=== PATIENT | male | born 1995 | race Caucasian/White ===

== ENCOUNTER → 2020-09-10 10:36 | Outpatient (CLI) | payer OTHER, SELFPAY ==
--- NOTE | ~2020-09-10 | MR_ITS ---
EXAMINATION: MR shoulder LT wo con DATE: 09/10/2020 11:10 INDICATION: Torn labrum at the left shoulder post injury a few years prior presenting with worsening left shoulder pain, popping and limited range of motion TECHNIQUE: Magnetic resonance imaging (MRI) of the left shoulder was performed without intravenous co ntrast. Sequences included axial PD-weighted FS FSE, coronal oblique PD-weighted FS FSE, coronal obli que T2-weighted FS FSE, sagittal PD-weighted FS FSE, and sagittal T1-weighted SE. COMPARISON: None. FINDINGS: Coracoacromial arch: The acromion undersurface is curved in morphology (type II). The coracoacromial ligament is normal. A cromioclavicular joint is normal. Rotator cuff: The supraspinatus, infraspinatus and teres minor tendons are normal. The subscapularis tendon is norm al. Normal rotator cuff muscle bulk and signal. Biceps tendon, glenoid labrum and glenohumeral cartilage: Long head of the biceps tendon is normal. Glenohumeral cartilage is normal. The inferior and anteroin ferior glenoid labrum appears mildly thickened with subtle amorphous increased signal which could rep resent mild degeneration without a clearly defined labral tear. Fluid: Physiologic amount of fluid in the glenohumeral joint and biceps tendon sheath. No loose osteochondra l bodies. Abnormally increased fluid signal in the subacromial/subdeltoid bursa to suggest bursitis. Bones: Normal marrow signal with no edema, fracture or abnormal marrow replacing process. IMPRESSION: 1. Mild thickening and subtle amorphous increased signal at the inferior to anteroinferior glenoid la yfn suggesting degeneration without discrete tear. Otherwise unremarkable left shoulder MRI. If clin ically indicated could consider MR arthrogram with ABER imaging for more sensitive assessment for lab ral tear at this location. Reviewed, dictated and finalized at location A. IMPRESSION: 1. Mild thickening and subtle amorphous increased signal at the inferior to ant eroinferior glenoid labrum suggesting degeneration without discrete tear. Other gonzalez unremarkable left shoulder MRI. If clinically indicated could consider MR arthrogram with ABER imaging for more sensitive assessment for labral tear at t his location.
== END ==
PROVIDERS: PCP Internal Medicine; Visit Provider Physician Assistant Medical
DX: S43.085A Other dislocation of left shoulder joint, initial encounter (principal); X58.XXXA Exposure to other specified factors, initial encounter
CPT/HCPCS: 73221